=== PATIENT | male | born 1960 | race Caucasian/White ===

== ENCOUNTER 2019-07-29 23:31 | Inpatient (IN) | payer OTHER ==
[~2019-07-29] VITALS: Ht 180.3 cm; Wt 120.2 kg
[2019-07-29] MEDS ORDERED: SODIUM CHLORIDE 0.9% 1,000 ML IV ONE (23:53)
[2019-07-29] MEDS ORDERED: ONDANSETRON HCL 4MG/2ML INJ IV STA (23:53)
[2019-07-30] VITALS (46 sets, daily range): BP systolic 112–172; BP diastolic 60–117
[2019-07-30] MEDS ORDERED: LEVETIRACETAM 500MG PREMIX 100 ML IV ONE
[2019-07-30 00:24] LABS: BASOPHILS % 0.3 % (0.0-2.0); EOSINOPHILS % 0.1 % (0.0-5.0); HEMATOCRIT. 45.5 % (42.0-52.0); HEMOGLOBIN. 15.1 g/dL (14.0-18.0); MEAN CORPUSCULAR HEMOGLOBIN 26.1 pg (28.0-32.0); MEAN CORPUSCULAR VOLUME 78.5 fL (80.0-94.0); MEAN PLATELET VOLUME 8.6 fl (7.4-10.4); MONOCYTES % 5.6 % (2.0-8.0); PLATELET 218 x1000/uL (130-400); RED CELL DISTRIBUTION WIDTH 14.3 % (11.6-14.6)
[2019-07-30 00:27] LABS: CHLORIDE 104 mEq/L (98-107)
[2019-07-30 00:30] LABS: ETHANOL BLOOD < 10 mg/dL
[2019-07-30 00:35] LABS: CREATINE KINASE 115 IU/L (39-308)
[2019-07-30] MEDS ORDERED: LORAZEPAM 2MG/ML CPJ ONE (00:37)
[2019-07-30] MEDS ORDERED: LORAZEPAM 2MG/ML CPJ IV ONE (00:45)
[2019-07-30 00:52] LABS: CARBAMAZEPINE < 0.5 ug/mL (4-12); PHENOBARBITAL < 2.1 ug/mL (15.0-40.0); VALPROIC ACID < 3.0 ug/mL (50-100)
[2019-07-30] MEDS ORDERED: ACETAMINOPHEN 325MG TABLET PO PRN (08:00)
[2019-07-30] MEDS ORDERED: LORAZEPAM 2MG/ML CPJ IV PRN (08:00)
[2019-07-30] MEDS ORDERED: DIPHENHYDRAMINE 50MG/ML VIAL IV PRN (08:00)
[2019-07-30] MEDS ORDERED: CLONIDINE 0.1MG TABLET PO PRN (08:00)
[2019-07-30] MEDS ORDERED: HYDROCODONE/ACETAMINOPHEN 10/325MG TABLET PO PRN (08:00)
[2019-07-30] MEDS ORDERED: GUAIFENESIN 200MG/10ML SUGAR FREE UDC PO PRN (08:00)
[2019-07-30] MEDS ORDERED: MAGNESIUM/ALUMINUM HYDROXIDE/SIMETHICONE 30ML UDC PO PRN (08:00)
[2019-07-30] MEDS ORDERED: ONDANSETRON HCL 4MG/2ML INJ IV PRN (08:00)
[2019-07-30] MEDS ORDERED: MORPHINE SULFATE 2 MG/ML CPJ (NOT FOR IM USE) IV PRN ×2 (08:00→13:30)
[2019-07-30] MEDS ORDERED: IPRATROPIUM/ALBUTEROL 0.5-3(2.5)MG/3ML NEB HHN PRN (08:00)
[2019-07-30] MEDS ORDERED: DOCUSATE SODIUM 100MG CAPSULE PO PRN (08:00)
[2019-07-30] MEDS ORDERED: LEVETIRACETAM 500MG PREMIX 100 ML IV NR (09:30)
[2019-07-30 10:47] LABS: CLARITY URINE CLEAR (CLEAR); COLOR URINE YELLOW (YELLOW); KETONES URINE NEGATIVE (NEGATIVE); LEUKOCYTE ESTERASE URINE NEGATIVE (NEGATIVE); NITRITE URINE NEGATIVE (NEGATIVE); OCCULT BLOOD URINE NEGATIVE (NEGATIVE); PROTEIN URINE TRACE (NEGATIVE); SPECIFIC GRAVITY URINE 1.015 (1.005-1.030); UROBILINOGEN URINE 0.2 E.U./dL (0.2-1.0)
[2019-07-30 11:30] LABS: T4 FREE 1.06 ng/dL (0.76-1.46)
[2019-07-30 11:30] LABS: *AMPHETAMINES SCREEN URINE NEGATIVE (NEGATIVE); *BARBITURATES SCREEN URINE NEGATIVE (NEGATIVE); *BENZODIAZEPINES SCREEN URINE NEGATIVE (NEGATIVE)
[2019-07-30 11:31] LABS: *COCAINE SCREEN URINE NEGATIVE (NEGATIVE); CANNABINOID URINE SCREEN NEGATIVE (NEGATIVE); METHADONE URINE SCREEN NEGATIVE (NEGATIVE); PHENCYCLIDINE URINE SCREEN NEGATIVE (NEGATIVE)
[2019-07-30] MEDS: HYDRALAZINE 20MG/ML VIAL IV PRN ×2 (14:06→20:47)
[2019-07-30] MEDS: NICARDIPINE 100 MG in SODIUM CHLORIDE 0.9% 60 ML IV PRN ×2 (14:12→20:47)
[2019-07-30] MEDS: SODIUM CHLORIDE 0.9% INJ 3ML FLUSH IVF SCH ×2 (14:17→21:11)
[2019-07-30 14:34] LABS: CREATINE KINASE 863 IU/L (39-308)
[2019-07-30 14:35] LABS: CREATINE KINASE MB FRACTION 1.4 ng/mL (0.5-3.6)
[2019-07-30] MEDS: DEXT 5%/LACTATED RINGERS 1,000 ML IV SCH (20:06)
[2019-07-30] MEDS: METOPROLOL TARTRATE 25MG TABLET PO SCH (20:20)
[2019-07-30] MEDS: LEVETIRACETAM 500MG PREMIX 100 ML IV SCH (20:47)
[2019-07-30] MEDS ORDERED: LEVETIRACETAM 500MG PREMIX 100 ML IV SCH (21:00)
[2019-07-30 23:38] LABS: CREATINE KINASE 964 IU/L (39-308)
[2019-07-30 23:39] LABS: CREATINE KINASE MB FRACTION < 1.0 ng/mL (0.5-3.6)
[2019-07-31] VITALS (90 sets, daily range): BP systolic 99–135; BP diastolic 47–80
[2019-07-31 05:43] LABS: BASOPHILS % 0.1 % (0.0-2.0); EOSINOPHILS % 0.3 % (0.0-5.0); HEMOGLOBIN. 14.1 g/dL (14.0-18.0); LYMPHOCYTES % 12.7 % (20.0-50.0); MEAN CORPUSCULAR VOLUME 79.3 fL (80.0-94.0); MEAN PLATELET VOLUME 8.8 fl (7.4-10.4); MONOCYTES % 10.9 % (2.0-8.0); PLATELET 193 x1000/uL (130-400); RED BLOOD CELL COUNT 5.42 mill/uL (4.7-6.1); RED CELL DISTRIBUTION WIDTH 14.5 % (11.6-14.6)
[2019-07-31 05:46] LABS: CHLORIDE 108 mEq/L (98-107)
[2019-07-31] MEDS: SODIUM CHLORIDE 0.9% INJ 3ML FLUSH IVF SCH ×3 (06:22→22:00)
[2019-07-31] MEDS: METOPROLOL TARTRATE 25MG TABLET PO SCH ×2 (09:00→21:58)
[2019-07-31] MEDS: LEVETIRACETAM 500MG PREMIX 100 ML IV SCH (09:00)
[2019-07-31] MEDS: NICARDIPINE 100 MG in SODIUM CHLORIDE 0.9% 60 ML IV PRN (09:30)
[2019-07-31] MEDS: DEXT 5%/LACTATED RINGERS 1,000 ML IV SCH (13:57)
[2019-07-31] MEDS: LEVETIRACETAM 500MG TABLET PO SCH (22:00)
[2019-08-01] VITALS (69 sets, daily range): BP systolic 102–148; BP diastolic 50–99
[2019-08-01] MEDS: SODIUM CHLORIDE 0.9% INJ 3ML FLUSH IVF SCH ×3 (06:00→21:46)
[2019-08-01] MEDS: METOPROLOL TARTRATE 25MG TABLET PO SCH ×2 (08:48→20:27)
[2019-08-01] MEDS: DEXT 5%/LACTATED RINGERS 1,000 ML IV SCH ×2 (08:49→22:19)
[2019-08-01] MEDS: LEVETIRACETAM 500MG TABLET PO SCH ×2 (08:50→20:27)
[2019-08-01] MEDS: HYDRALAZINE 20MG/ML VIAL IV PRN (22:27)
[2019-08-02] VITALS (47 sets, daily range): BP systolic 117–149; BP diastolic 46–92
[2019-08-02] MEDS: SODIUM CHLORIDE 0.9% INJ 3ML FLUSH IVF SCH ×3 (05:08→21:10)
[2019-08-02] MEDS: LEVETIRACETAM 500MG TABLET PO SCH ×2 (09:07→21:09)
[2019-08-02] MEDS: METOPROLOL TARTRATE 25MG TABLET PO SCH ×2 (09:07→21:10)
[2019-08-02 17:47] LABS: OPIATES URINE SCREEN NEGATIVE (NEGATIVE)
[2019-08-03] VITALS (11 sets, daily range): BP systolic 122–144; BP diastolic 76–91
[2019-08-03] MEDS ORDERED: METF-414 (05:12)
[2019-08-03] MEDS: SODIUM CHLORIDE 0.9% INJ 3ML FLUSH IVF SCH ×3 (06:16→22:23)
[2019-08-03 06:38] LABS: BASOPHILS % 0.5 % (0.0-2.0); EOSINOPHILS % 2.1 % (0.0-5.0); HEMATOCRIT. 44.3 % (42.0-52.0); HEMOGLOBIN. 14.9 g/dL (14.0-18.0); LYMPHOCYTES % 17.2 % (20.0-50.0); MEAN CORPUSCULAR HEMOGLOBIN 26.3 pg (28.0-32.0); MEAN CORPUSCULAR VOLUME 78.2 fL (80.0-94.0); MEAN PLATELET VOLUME 8.5 fl (7.4-10.4); MONOCYTES % 11.9 % (2.0-8.0); NEUTROPHILS % 68.3 % (40.0-76.0); PLATELET 264 x1000/uL (130-400); RED BLOOD CELL COUNT 5.67 mill/uL (4.7-6.1); RED CELL DISTRIBUTION WIDTH 13.9 % (11.6-14.6)
[2019-08-03 06:57] LABS: CHLORIDE 107 mEq/L (98-107)
[2019-08-03] MEDS: LEVETIRACETAM 500MG TABLET PO SCH ×2 (09:56→22:17)
[2019-08-03] MEDS: METOPROLOL TARTRATE 25MG TABLET PO SCH ×2 (09:56→22:18)
[2019-08-03] MEDS ORDERED: ATORVASTATIN CALCIUM 10MG TABLET PO SCH (21:00)
[2019-08-04] VITALS: BP 109/51
[2019-08-04 04:00] VITALS: BP 122/82
[2019-08-04] MEDS: SODIUM CHLORIDE 0.9% INJ 3ML FLUSH IVF SCH (06:55)
[2019-08-04 07:53] VITALS: BP 111/73
[2019-08-04] MEDS: LEVETIRACETAM 500MG TABLET PO SCH (08:28)
[2019-08-04] MEDS: METOPROLOL TARTRATE 25MG TABLET PO SCH (08:29)
[2019-08-04 12:00] VITALS: BP 118/68
== END 2019-08-04 12:18 | disposition home health service (06) | DRG 100 ==
LOC: ER 23:53 → MICUSO 07-30 02:07 → EDBEDREQDT 07-30 02:12 → EDBEDREQ 07-30 02:12 → EDBEDREQTM 07-30 02:12 → CANRESERV 07-30 07:37 → ENRESERV 07-30 07:37 → EDBEDREQSVC 07-30 08:04 → EDBEDREQTM 07-30 08:04 → EDBEDREQ 07-30 08:04 → ENRESERV 07-30 11:31 → 6EST 08-03 03:37
PROVIDERS: ADMIT Internal Medicine; ATTEND Internal Medicine
DX: G40.409 Other generalized epilepsy and epileptic syndromes, not intractable, without status epilepticus (principal); S06.6X0A Traumatic subarachnoid hemorrhage without loss of consciousness, initial encounter; G81.91 Hemiplegia, unspecified affecting right dominant side; S02.0XXA Fracture of vault of skull, initial encounter for closed fracture; I10 Essential (primary) hypertension; R73.9 Hyperglycemia, unspecified; E66.9 Obesity, unspecified; E78.5 Hyperlipidemia, unspecified; X58.XXXA Exposure to other specified factors, initial encounter; Y93.89 Activity, other specified; Y92.89 Other specified places as the place of occurrence of the external cause; Y99.8 Other external cause status; Z79.84 Long term (current) use of oral hypoglycemic drugs; Z82.0 Family history of epilepsy and other diseases of the nervous system; Z68.37 Body mass index [BMI] 37.0-37.9, adult; F07.81 Postconcussional syndrome
CPT/HCPCS: 36415; 71045; 80048; 80053; 80061; 80156; 80165; 80184; 80185; 80305; 80320; 81003; 82140; 82550; 82553; 82962; 83036; 83880; 84439; 84443; 84484; 85025; 85379; 93005; 93306; 93970; 95816; 97116; 97162; 97166; 97530; 99285; J0360; J1953; J2060; J2405; J3490; J7030; J7050; J7121; G0480